=== PATIENT | female | born 1990 | race Caucasian/White ===

== ENCOUNTER 2018-02-25 15:03 | Emergency (ER) | payer BC, OTHER ==
[~2018-02-25] VITALS: Ht 157.5 cm; Wt 63.5 kg
[2018-02-25] MEDS ORDERED: PREN1TAB78 PO (15:20)
[2018-02-25 16:23] LABS: BASOPHILS % 0.8 % (0.0-2.0); EOSINOPHILS % 4.1 % (0.0-5.0); HEMATOCRIT. 37.3 % (36.0-48.0); HEMOGLOBIN. 13.2 g/dL (12.0-16.0); LYMPHOCYTES % 18.3 % (20.0-50.0); MEAN CORPUSCULAR HEMOGLOBIN 31.1 pg (28.0-32.0); MEAN CORPUSCULAR VOLUME 87.9 fL (81.0-99.0); MEAN PLATELET VOLUME 6.7 fl (7.4-10.4); MONOCYTES % 5.1 % (2.0-8.0); NEUTROPHILS % 71.7 % (40.0-76.0); PLATELET 313 x1000/uL (130-400); RED BLOOD CELL COUNT 4.25 mill/uL (4.2-5.4); RED CELL DISTRIBUTION WIDTH 12.8 % (11.6-14.6)
[2018-02-25 16:29] LABS: CHLORIDE 103 mEq/L (98-107)
[2018-02-25 16:53] LABS: B-HCG QUANTITATIVE 124332 mIU/mL (<3)
[2018-02-25 18:14] LABS: CLARITY URINE CLOUDY (CLEAR); COLOR URINE YELLOW (YELLOW); KETONES URINE NEGATIVE (NEGATIVE); LEUKOCYTE ESTERASE URINE NEGATIVE (NEGATIVE); NITRITE URINE NEGATIVE (NEGATIVE); OCCULT BLOOD URINE NEGATIVE (NEGATIVE); PH URINE 8.5 (4.5-8.0); PROTEIN URINE NEGATIVE (NEGATIVE)
[2018-02-25] MEDS ORDERED: ACETAMINOPHEN 325MG TABLET PO ONE (18:45)
[2018-02-25 18:48] VITALS: BP 112/56
== END 2018-02-25 19:14 | disposition home or self-care (01) ==
LOC: ER 15:56
DX: O20.0 Threatened abortion (principal); O99.341 Other mental disorders complicating pregnancy, first trimester; F41.9 Anxiety disorder, unspecified; Z3A.08 8 weeks gestation of pregnancy
CPT/HCPCS: 36415; 76801; 80053; 81003; 81025; 84702; 85025; 86850; 86900; 99285

== ENCOUNTER 2018-10-23 23:18 | Inpatient (IN) | payer OTHER ==
[~2018-10-23] VITALS: Ht 157.5 cm; Wt 63.5 kg
[~2018-10-23 23:18] MED LIST: PREN1TAB78 PO
[2018-10-24] MEDS ORDERED: SODIUM CHLORIDE 0.9% 1,000 ML IV ONE ×2 (00:28→02:11)
[2018-10-24] MEDS ORDERED: KETOROLAC 30MG/ML VIAL IV STA (00:28)
[2018-10-24] MEDS ORDERED: ONDANSETRON HCL 4MG/2ML INJ IV STA (00:28)
[2018-10-24 00:49] LABS: HEMATOCRIT. 41.8 % (36.0-48.0); HEMOGLOBIN. 14.2 g/dL (12.0-16.0); MEAN CORPUSCULAR HEMOGLOBIN 30.2 pg (28.0-32.0); MEAN CORPUSCULAR VOLUME 89.1 fL (81.0-99.0); MEAN PLATELET VOLUME 6.9 fl (7.4-10.4); PLATELET 157 x1000/uL (130-400); RED BLOOD CELL COUNT 4.69 mill/uL (4.2-5.4); RED CELL DISTRIBUTION WIDTH 12.9 % (11.6-14.6)
[2018-10-24 00:53] LABS: CHLORIDE 102 mEq/L (98-107)
[2018-10-24 00:54] LABS: INR 1.3; PROTHROMBIN TIME 12.7 sec (9.1-11.1)
[2018-10-24 01:14] LABS: PLATELET ESTIMATE NORMAL
[2018-10-24] MEDS ORDERED: CEFTRIAXONE 1 G PREMIX 50 ML IV ONE (02:15)
[2018-10-24] MEDS ORDERED: LEVOFLOXACIN 750MG PREMIX 150 ML IV ONE (02:30)
[2018-10-24 02:34] LABS: CLARITY URINE CLOUDY (CLEAR); COLOR URINE DARK YELLOW (YELLOW); KETONES URINE 1+ (NEGATIVE); LEUKOCYTE ESTERASE URINE 2+ (NEGATIVE); NITRITE URINE NEGATIVE (NEGATIVE); OCCULT BLOOD URINE 2+ (NEGATIVE); PH URINE 5.5 (4.5-8.0); PROTEIN URINE 2+ (NEGATIVE); SPECIFIC GRAVITY URINE 1.046 (1.005-1.030)
[2018-10-24] MEDS ORDERED: DEXT 5%/0.45% NACL KCL 20MEQ/L 1,000 ML IV ONE (02:45)
[2018-10-24] MEDS ORDERED: ACETAMINOPHEN 500MG TABLET PO ONE (02:45)
[2018-10-24 05:53] VITALS: BP 97/57
[2018-10-24] MEDS ORDERED: DIPHENHYDRAMINE 50MG/ML VIAL IV PRN (06:00)
[2018-10-24] MEDS ORDERED: GUAIFENESIN 200MG/10ML SUGAR FREE UDC PO PRN (06:00)
[2018-10-24] MEDS ORDERED: PIPERACILLIN/TAZ 3.375G PREMIX 50 ML IV SCH (06:00)
[2018-10-24] MEDS ORDERED: ONDANSETRON HCL 4MG/2ML INJ IV PRN (06:00)
[2018-10-24] MEDS ORDERED: NA PHOS,M-B/NA PHOS,DI-BA ENEMA 118ML PR PRN (06:00)
[2018-10-24] MEDS ORDERED: LORAZEPAM 2MG/ML CPJ IV PRN (06:00)
[2018-10-24] MEDS ORDERED: CLONIDINE 0.1MG TABLET PO PRN (06:00)
[2018-10-24] MEDS ORDERED: DOCUSATE SODIUM 100MG CAPSULE PO PRN (06:00)
[2018-10-24] MEDS ORDERED: HYDROCODONE/ACETAMINOPHEN 5/325MG TABLET PO PRN (06:00)
[2018-10-24] MEDS ORDERED: MORPHINE SULFATE 10 MG/ML CPJ IV PRN (06:00)
[2018-10-24] MEDS ORDERED: MAGNESIUM/ALUMINUM HYDROXIDE/SIMETHICONE 30ML UDC PO PRN (06:00)
[2018-10-24] MEDS ORDERED: IPRATROPIUM/ALBUTEROL 0.5-3(2.5)MG/3ML NEB INH PRN (06:00)
[2018-10-24 08:00] VITALS: BP 90/44
[2018-10-24] MEDS: SODIUM CHLORIDE 0.45% 1,000 ML IV SCH ×2 (09:02→21:23)
[2018-10-24] MEDS: PIPERACILLIN/TAZ 3.375G PREMIX 50 ML IV SCH ×3 (09:02→19:48)
[2018-10-24] MEDS: ASPIRIN 81MG EC TABLET PO SCH (09:02)
[2018-10-24] MEDS: ENOXAPARIN 40MG/0.4ML SYR SUBCUT SCH (09:03)
[2018-10-24 09:12] LABS: CHLORIDE 107 mEq/L (98-107)
[2018-10-24 12:00] VITALS: BP 100/56
[2018-10-24 16:00] VITALS: BP 83/41
[2018-10-24] MEDS ORDERED: SODIUM CHLORIDE 0.9% 250 ML IV ONE (16:45)
[2018-10-24] MEDS: ACETAMINOPHEN 325MG TABLET PO PRN (19:48)
[2018-10-24 20:00] VITALS: BP 98/59
[2018-10-25] VITALS: BP 98/51
[2018-10-25] MEDS: PIPERACILLIN/TAZ 3.375G PREMIX 50 ML IV SCH ×4 (01:05→18:23)
[2018-10-25 04:00] VITALS: BP 92/44
[2018-10-25] MEDS: ACETAMINOPHEN 325MG TABLET PO PRN ×2 (06:08→20:28)
[2018-10-25] MEDS: SODIUM CHLORIDE 0.45% 1,000 ML IV SCH (06:10)
[2018-10-25 06:22] LABS: CHLORIDE 104 mEq/L (98-107)
[2018-10-25 06:25] LABS: HEMATOCRIT. 39.6 % (36.0-48.0); HEMOGLOBIN. 13.5 g/dL (12.0-16.0); MEAN CORPUSCULAR HEMOGLOBIN 30.7 pg (28.0-32.0); MEAN CORPUSCULAR VOLUME 90.4 fL (81.0-99.0); MEAN PLATELET VOLUME 7.9 fl (7.4-10.4); PLATELET 137 x1000/uL (130-400); RED BLOOD CELL COUNT 4.38 mill/uL (4.2-5.4); RED CELL DISTRIBUTION WIDTH 12.9 % (11.6-14.6)
[2018-10-25 06:34] LABS: LDL CHOLESTEROL 38 mg/dL (5-100)
[2018-10-25 06:36] LABS: HDL CHOLESTEROL 8 mg/dL (40-59); T4 FREE 1.36 ng/dL (0.76-1.46)
[2018-10-25 08:00] VITALS: BP 91/41
[2018-10-25] MEDS: ASPIRIN 81MG EC TABLET PO SCH (09:45)
[2018-10-25] MEDS: ENOXAPARIN 40MG/0.4ML SYR SUBCUT SCH (09:46)
[2018-10-25 12:45] LABS: PLATELET ESTIMATE NORMAL
[2018-10-25 16:00] VITALS: BP 102/65
[2018-10-25 19:32] VITALS: BP 102/65
== END 2018-10-25 20:23 | disposition short-term general hospital (02) | DRG 866 ==
LOC: ER 23:18 → 7WST 10-24 02:47 → ENRESERV 10-24 02:59
PROVIDERS: ADMIT Internal Medicine; ATTEND Internal Medicine
DX: B34.9 Viral infection, unspecified (principal); R65.10 Systemic inflammatory response syndrome (SIRS) of non-infectious origin without acute organ dysfunction; F41.9 Anxiety disorder, unspecified; E86.0 Dehydration; Z79.899 Other long term (current) drug therapy
CPT/HCPCS: 36415; 71045; 74176; 80048; 80061; 83605; 84439; 84443; 84484; 87493; 87804; 96361; 96374; 96375; 99291; J0696; J1650; J1885; J1956; J2405; J2543; J7030; J7050